=== PATIENT | male | born 1960 | race Caucasian/White ===

== ENCOUNTER → 2017-09-20 15:26 | Outpatient (CLI) | payer OTHER, SELFPAY ==
--- NOTE | 2017-09-20 15:30 | CT_ITS ---
CT sinus wo con CLINICAL INDICATION: Recent trauma with epistaxis ITS.REASON: EPISTAXIS ORDERING PHYSICIAN: Robin Jackson MD PATIENT AGE: 56 years COMPARISON: None TECHNIQUE:Axial, sagittal, and coronal images are generated and reviewed without contrast. All CT scans at the facility use one or more dose reduction, viz: automated exposure control; ma/kV adjustment per patient size (including targeted exams where dose is matched to indication; i.e. head); or iterative reconstruction technique. FINDINGS:No acute fracture is evident. Mild mucosal thickening involves the frontal sinuses with moderate to severe mucosal thickening of the ethmoid sinuses and bilateral maxillary mucosal thickening having a somewhat lobular contour consistent with bilateral retention cysts or polyps measuring up to 18 mm in thickness in the maxillary sinus floor on both sides. No sinus air-fluid level. Mild mucosal thickening involving sphenoid sinus. The ostiomeatal complexes are occluded bilaterally. There is minimal rightward nasal septal deviation. The orbits have an unremarkable appearance. Scattered small nodes are present in the neck There are encephalomalacic changes in the left frontal lobe and postsurgical changes in the left frontoparietal calvarium. Small metallic density present posterior to the left mandibular ramus. IMPRESSION: 1. Chronic Pansinusitis. Bilateral maxillary retention cysts and/or polyps. 2. No acute fracture or other significant anomalies
== END ==
PROVIDERS: Family Provider Family Medicine; PCP Family Medicine; Visit Provider Family Medicine
DX: R04.0 Epistaxis (principal)
CPT/HCPCS: 70486

== ENCOUNTER → 2017-10-23 10:58 | Outpatient (POV) | payer OTHER, SELFPAY | PROVIDERS: Visit Provider Otolaryngology | DX: Z00.00 Encounter for general adult medical examination without abnormal findings (principal) ==

== ENCOUNTER → 2018-02-05 15:07 | Outpatient (CLI) | payer OTHER, SELFPAY ==
--- NOTE | 2018-02-05 15:09 | MR_ITS ---
MR head/brain wo/w con HISTORY: Severe deep headache constant headache ITS.REASON: headache ORDERING PHYSICIAN: Brandi Davenport MD PATIENT AGE: 57 years Comparison: 07/17/2016 TECHNIQUE: Standard multiplanar multiecho sequences are performed without and with gadolinium enhancement. FINDINGS: No midline shift, mass effect, intracranial hemorrhage, hydrocephalus, or acute infarction is evident. No enhancing lesions. No intra or extra-axial mass. There are encephalomalacia changes in the left parietal lobe at the vertex and in the left frontal lobe inferiorly. The pituitary and optic chiasm are unremarkable. Craniocervical junction has an unremarkable appearance. The cerebellopontine angles, cerebellum, and brainstem are unremarkable. Minimal enhancement in the cortical region of the left parietal lobe not significant changed There is opacification of the ethmoid sinuses with moderate obvious mucosal thickening of the maxillary sinuses. There is an old left frontal parietal skull fracture versus prior craniotomy. Please correlate with patient's surgical history. IMPRESSION: 1. No acute intracranial findings with no significant change. 2. Encephalomalacic change in the left parietal lobe and left frontal lobe is not significantly changed. 3. Sinusitis
[2018-02-05 16:01] LABS: Blood Urea Nitrogen 11 mg/dL (7-18); Creatinine,Serum 1.27 mg/dL (0.70-1.30); Estimated Glomerular Filt Rate 58 ml/min (>60); GFR (African American) 71 ML/MIN (>60)
== END ==
PROVIDERS: PCP Family Medicine; Visit Provider Specialist
DX: R51 Headache (principal); S06.9X9S Unspecified intracranial injury with loss of consciousness of unspecified duration, sequela; W19.XXXS Unspecified fall, sequela
CPT/HCPCS: 36415; 70553; 82565; 84520; A9576

== ENCOUNTER → 2018-02-08 16:23 | Outpatient (CLI) | payer OTHER, SELFPAY | PROVIDERS: PCP Family Medicine; Visit Provider Specialist | DX: R51 Headache (principal) ==

== ENCOUNTER → 2018-02-25 15:02 | Outpatient (POV) | payer OTHER, SELFPAY ==
[2018-02-25 15:38] VITALS: BP 129/80; PULSE 103; RESP 18; O2SAT 98
--- NOTE | 2018-02-25 15:57 | [facility].PMCON ---
Assessment and Plan (1) Migraine Current visit: Yes Status: Chronic Category: Medical Code(s): G43.909 - Migraine, unspecified, not intractable, without status migrainosus - Assessment and plan all Dx Assessment and Plan for all problems:: We will try to get a neurostimulator approved. I believe that this may give him some relief. Patient has realistic goals in regards to this. Patient has tried and failed multiple other therapies. This note was dictated using voice recognition software and may contain errors or omissions HPI - Data of Consult Consult date: 02/25/18 Requesting Physician: India Woodard APRN Primary Care Provider: Robin Jackson MD - Consult Narrative Reason for consult: Headache History of present illness: Mr. Eng is a 57 year old male who presents today for consultation in regards to his headaches. Patient had a injury in 2014 where he sustained a subdermal hematoma. Patient has been in rehab for several years. Patient does not have much of pain sensation however he does have a chronic headache. Patient has tried dry needling along with injections along with nasal treatment patient has had no relief. Patient states that sunlight and loud noises increases pain while rest decreases his pain. Medication has not been very helpful for him. Patient has been seen by a neurologist and has not been able to get any relief. Patient's tried physical therapy and massage along with anti-inflammatories and benzodiazepines. Patient has had surgery in the past. Patient rates his pain today a 6 out of 10. He rates that it is constant. CC: India Woodard APRN [facility] History I have reviewed the patient's past medical history: Yes Medical History: Reports:: Hyperlipidemia, Hypertension, Migraine Denies:: Diabetes Mellitus Type 1 Other Surgeries: Yes: Other - *Social History Smoking Status: Never smoker Alcohol Intake: never Alcohol Intake Frequency:: other Substance Use Type: denies use Occupational Status: disabled Housing: house Household Members: family - Psychiatric History Expresses thoughts of harming self/others: None Suicide Plan Description: No Plan *Family Hx:: No significant family history Review of Systems - Review of Systems ROS General: no recent weight change, no fever, no sleep disturbances Respiratory: no cough, no shortness of air, no recurring pulmonary infections Cardiovascular/Peripheral Vascular: No chest pain, No palpitations, no edema, no shortness of breath. Gastrointestinal: no incontinence, normal bowel movements reported Genitourinary: no incontinence Musculoskeletal: No myofascial pain Psychiatric: normal mood/ affect, [denies depression], [denies anxiety] Neurological: [denies weakness in extremities], chronic headache Meds Home Medications Medication Instructions Recorded Confirmed Type clonazepam 0.5 mg tablet PO 30 Days #90 05/16/17 02/18/18 History zolpidem ER 12.5 mg PO 30 Days #30 05/16/17 02/18/18 History tablet,extended release,multiphase donepezil 10 mg tablet 10 mg PO DAILY 90 Days #90 tab 02/18/18 02/18/18 History Allergies Allergy/AdvReac Type Severity Reaction Status Date / Time No Known Allergies Allergy Unverified 02/18/18 16:27 Objective Vital signs: Pulse Resp BP Pulse Ox 103 H 18 129/80 98 02/25/18 15:38 02/25/18 15:38 02/25/18 15:38 02/25/18 15:38 Narrative: Physical Exam General: Alert and oriented x3, no acute distress, pleasant and cooperative, [on room air] Lungs: Resps E/U, Symmetrical chest expansion, Eyes: PERRL Musculoskeletal: deep tendon reflexes normal, strength in upper and lower extremities [5/5], slightly antalgic gait noted Neurological: speech clear, sisal picker equal, no gross sensory deficits Opioid Risk Tool - Opioid Risk Tool-Male Family hx alcohol abuse: N Family hx illegal drugs: N Family hx rx drug abuse: N Personal hx al
--- NOTE | 2018-02-25 16:00 | P.CONS_ITS ---
Assessment and Plan (1) Migraine Current visit: Yes Status: Chronic Category: Medical Code(s): G43.909 - Migraine, unspecified, not intractable, without status migrainosus - Assessment and plan all Dx Assessment and Plan for all problems:: We will try to get a neurostimulator approved. I believe that this may give him some relief. Patient has realistic goals in regards to this. Patient has tried and failed multiple other therapies. This note was dictated using voice recognition software and may contain errors or omissions HPI - Data of Consult Consult date: 02/25/18 Requesting Physician: India Woodard APRN Primary Care Provider: Robin Jackson MD - Consult Narrative Reason for consult: Headache History of present illness: Mr. Eng is a 57 year old male who presents today for consultation in regards to his headaches. Patient had a injury in 2014 where he sustained a subdermal hematoma. Patient has been in rehab for several years. Patient does not have much of pain sensation however he does have a chronic headache. Patient has tried dry needling along with injections along with nasal treatment patient has had no relief. Patient states that sunlight and loud noises increases pain while rest decreases his pain. Medication has not been very helpful for him. Patient has been seen by a neurologist and has not been able to get any relief. Patient's tried physical therapy and massage along with anti-inflammatories and benzodiazepines. Patient has had surgery in the past. Patient rates his pain today a 6 out of 10. He rates that it is constant. CC: India Woodard APRN [facility] History I have reviewed the patient's past medical history: Yes Medical History: Reports:: Hyperlipidemia, Hypertension, Migraine Denies:: Diabetes Mellitus Type 1 Other Surgeries: Yes: Other - *Social History Smoking Status: Never smoker Alcohol Intake: never Alcohol Intake Frequency:: other Substance Use Type: denies use Occupational Status: disabled Housing: house Household Members: family - Psychiatric History Expresses thoughts of harming self/others: None Suicide Plan Description: No Plan *Family Hx:: No significant family history Review of Systems - Review of Systems ROS General: no recent weight change, no fever, no sleep disturbances Respiratory: no cough, no shortness of air, no recurring pulmonary infections Cardiovascular/Peripheral Vascular: No chest pain, No palpitations, no edema, no shortness of breath. Gastrointestinal: no incontinence, normal bowel movements reported Genitourinary: no incontinence Musculoskeletal: No myofascial pain Psychiatric: normal mood/ affect, [denies depression], [denies anxiety] Neurological: [denies weakness in extremities], chronic headache Meds Home Medications Medication Instructions Recorded Confirmed Type clonazepam 0.5 mg tablet PO 30 Days #90 05/16/17 02/18/18 History zolpidem ER 12.5 mg PO 30 Days #30 05/16/17 02/18/18 History tablet,extended release,multiphase donepezil 10 mg tablet 10 mg PO DAILY 90 Days #90 tab 02/18/18 02/18/18 History Allergies Allergy/AdvReac Type Severity Reaction Status Date / Time No Known Allergies Allergy Unverified 02/18/18 16:27 Objective Vital signs: Pulse Resp BP Pulse Ox
== END ==
PROVIDERS: PCP Family Medicine; Visit Provider Clinical Nurse Specialist Family Health
DX: G43.909 Migraine, unspecified, not intractable, without status migrainosus (principal)
CPT/HCPCS: 99202

== ENCOUNTER → 2018-02-26 10:57 | Outpatient (POV) | payer OTHER, SELFPAY | PROVIDERS: Visit Provider Dermatology | DX: Z00.00 Encounter for general adult medical examination without abnormal findings (principal) ==

== ENCOUNTER → 2018-06-18 15:03 | Outpatient (POV) | payer OTHER, SELFPAY | PROVIDERS: Visit Provider Dermatology | DX: Z00.00 Encounter for general adult medical examination without abnormal findings (principal) ==

== ENCOUNTER → 2018-12-03 14:31 | Outpatient (POV) | payer OTHER, SELFPAY | PROVIDERS: Visit Provider Dermatology | DX: Z00.00 Encounter for general adult medical examination without abnormal findings (principal) ==

== ENCOUNTER → 2019-08-12 14:01 | Outpatient (POV) | payer OTHER, SELFPAY | PROVIDERS: PCP Family Medicine; Visit Provider Physician Assistant | DX: Z00.00 Encounter for general adult medical examination without abnormal findings (principal) ==

== ENCOUNTER → 2019-10-27 13:47 | Outpatient (CLI) | payer OTHER, SELFPAY ==
[2019-10-27 15:40] LABS: Alanine Aminotransferase 71 U/L (12-78); Albumin Level 5.4 g/dl (3.5-5.0); Alkaline Phosphatase 161 U/L (38-126); Aspartate Amino Transferase 54 U/L (17-59); Bilirubin,Direct 0.2 mg/dl (0.0-0.4); Bilirubin,Indirect 0.4 mg/dL (0.0-0.9); Bilirubin,Total 0.6 mg/dl (0.2-1.3); Bilirubin,Unconjugated 0.4 mg/dL (0.0-1.1); Chol/HDL Ratio 2.4 (1-3.5); Cholesterol 249 mg/dl (140-200); HDL Cholesterol 105 mg/dl (40-60); Total Protein,Serum 8.8 g/dl (6.3-8.2); Triglycerides 177 mg/dl (30-150); VLDL Cholesterol 35 mg/dL (0-40)
[2019-10-27 15:51] LABS: Direct LDL Cholesterol 105.22 mg/dL (100-129)
== END ==
PROVIDERS: Visit Provider Family Medicine
DX: E78.5 Hyperlipidemia, unspecified (principal)
CPT/HCPCS: 36415; 80061; 80076

== ENCOUNTER → 2020-12-03 14:55 | Outpatient (CLI) | payer OTHER, SELFPAY ==
[2020-12-03 15:26] LABS: Basophils # 0.1 K/mm3 (0-0.2); Basophils % 1.3 % (0.1-2.0); Eosinophils # 0.3 K/mm3 (0.0-0.4); Eosinophils % 3.2 % (0.1-12.0); Hematocrit 48.5 % (42.0-52.0); Hemoglobin 16.2 g/dL (14.1-18.0); Lymphocytes # 2.8 K/mm3 (0.7-4.5); Lymphocytes % 26.9 % (10-50); Mean Corpuscular HGB Conc 33.4 g/dL (31.8-35.4); Mean Corpuscular Hemoglobin 31.9 pg (27.0-31.2); Mean Corpuscular Volume 95.4 fl (80-94); Mean Platelet Volume 7.6 fl (7.4-10.4); Monocytes # 0.6 K/mm3 (0.1-1.0); Monocytes % 5.8 % (1.7-9.3); Neutrophils # 6.5 K/mm3 (1.8-7.8); Neutrophils % 62.8 % (37.0-80.0); Platelet Count 346 K/mm3 (142-424); Red Blood Count 5.09 M/mm3 (4.60-6.20); Red Cell Distribution Width 13.3 % (11.5-17.5); White Blood Count 10.4 K/mm3 (4.8-10.8)
[2020-12-03 17:09] LABS: Alanine Aminotransferase 137 U/L (12-78); Albumin Level 5.1 g/dl (3.5-5.0); Albumin/Globulin Ratio 1.6 (1.1-1.8); Alkaline Phosphatase 145 U/L (38-126); Anion Gap 19.7 mEq/L (5-15); Aspartate Amino Transferase 86 U/L (17-59); Bilirubin,Total 0.8 mg/dl (0.2-1.3); Blood Urea Nitrogen 19 mg/dl (9-20); Calcium 10.4 mg/dl (8.4-10.2); Carbon Dioxide 25 mmol/L (22.0-30.0); Chloride 102 mmol/L (98-107); Cholesterol 245 mg/dl (140-200); Estimated Glomerular Filt Rate 52 ml/min (>60); GFR (African American) 63 ML/MIN (>60); Globulin 3.2 g/dL (1.3-3.2); Glucose 159 mg/dl (74-100); HDL Cholesterol 82 mg/dl (40-60); Potassium 4.7 mmoL/L (3.5-5.1); Sodium 142 mmol/L (136-145); Total Protein,Serum 8.3 g/dl (6.3-8.2); Triglycerides 199 mg/dl (30-150); VLDL Cholesterol 40 mg/dL (0-40)
[2020-12-03 17:20] LABS: Direct LDL Cholesterol 129.11 mg/dL (100-129)
[2020-12-03 17:40] LABS: Thyroid Stimulating Hormone 1.35 uIU/mL (0.465-4.68)
== END ==
PROVIDERS: Visit Provider Family Medicine
DX: R53.83 Other fatigue (principal); E78.5 Hyperlipidemia, unspecified; F41.9 Anxiety disorder, unspecified; G40.909 Epilepsy, unspecified, not intractable, without status epilepticus; Z12.5 Encounter for screening for malignant neoplasm of prostate
CPT/HCPCS: 36415; 80053; 80061; 84443; 85025; G0103

== ENCOUNTER → 2021-04-12 09:56 | Outpatient (CLI) | payer OTHER, SELFPAY | PROVIDERS: PCP Family Medicine; Visit Provider Nurse Practitioner | DX: Z20.822 Contact with and (suspected) exposure to COVID-19 (principal) | CPT/HCPCS: C9803; U0003; U0005 ==

== ENCOUNTER → 2021-12-08 13:27 | Outpatient (CLI) | payer OTHER, SELFPAY ==
[2021-12-08 16:44] LABS: Hemoglobin A1C 6.5 % (4.0-6.0)
[2021-12-08 16:59] LABS: Alanine Aminotransferase 53 U/L (12-78); Albumin/Globulin Ratio 1.5 (1.1-1.8); Alkaline Phosphatase 156 U/L (38-126); Anion Gap 17.8 mEq/L (5-15); Aspartate Amino Transferase 44 U/L (17-59); Bilirubin,Total 0.6 mg/dl (0.2-1.3); Blood Urea Nitrogen 21 mg/dl (9-20); Calcium 10.7 mg/dl (8.4-10.2); Carbon Dioxide 23 mmol/L (22.0-30.0); Chloride 105 mmol/L (98-107); Chol/HDL Ratio 3.2 (1-3.5); Cholesterol 266 mg/dl (140-200); Estimated Glomerular Filt Rate 56 ml/min (>60); GFR (African American) 68 ML/MIN (>60); Globulin 3.4 g/dL (1.3-3.2); Glucose 168 mg/dl (74-100); HDL Cholesterol 84 mg/dl (40-60); Potassium 4.8 mmoL/L (3.5-5.1); Sodium 141 mmol/L (136-145); Total Protein,Serum 8.4 g/dl (6.3-8.2); Triglycerides 249 mg/dl (30-150); VLDL Cholesterol 50 mg/dL (0-40)
[2021-12-10 08:00] LABS: Direct LDL Cholesterol 121 mg/dL (100-129)
== END ==
PROVIDERS: PCP Family Medicine; Visit Provider Family Medicine
DX: E78.5 Hyperlipidemia, unspecified (principal); R74.8 Abnormal levels of other serum enzymes; R73.9 Hyperglycemia, unspecified
CPT/HCPCS: 36415; 80053; 80061; 83036

== ENCOUNTER → 2022-06-20 13:26 | Outpatient (POV) | payer OTHER, SELFPAY | PROVIDERS: Visit Provider Dermatology | DX: Z00.00 Encounter for general adult medical examination without abnormal findings (principal) ==

== ENCOUNTER → 2022-11-22 13:47 | Outpatient (CLI) | payer OTHER, SELFPAY ==
[2022-11-22 15:06] LABS: Alanine Aminotransferase 91 U/L (12-78); Albumin Level 4.9 g/dl (3.5-5.0); Albumin/Globulin Ratio 1.5 (1.1-1.8); Alkaline Phosphatase 154 U/L (38-126); Anion Gap 16.6 mEq/L (5-15); Aspartate Amino Transferase 79 U/L (17-59); Bilirubin,Total 0.6 mg/dl (0.2-1.3); Blood Urea Nitrogen 15 mg/dl (9-20); Calcium 10.1 mg/dl (8.4-10.2); Carbon Dioxide 25 mmol/L (22.0-30.0); Chloride 105 mmol/L (98-107); Cholesterol 279 mg/dl (140-200); Estimated Glomerular Filt Rate 61 ml/min (>60); GFR (African American) 74 ML/MIN (>60); Globulin 3.2 g/dL (1.3-3.2); Glucose 213 mg/dl (74-100); HDL Cholesterol 69 mg/dl (40-60); Potassium 4.6 mmoL/L (3.5-5.1); Sodium 142 mmol/L (136-145); Total Protein,Serum 8.1 g/dl (6.3-8.2); Triglycerides 222 mg/dl (30-150); VLDL Cholesterol 44 mg/dL (0-40)
[2022-11-22 15:18] LABS: Direct LDL Cholesterol 149.74 mg/dL (100-129)
[2022-11-22 15:37] LABS: Prostate Specific Ag Screen 0.9 ng/ml (0.0-4.0)
== END ==
PROVIDERS: PCP Family Medicine; Visit Provider Family Medicine
DX: E78.5 Hyperlipidemia, unspecified (principal); R73.03 Prediabetes; Z12.5 Encounter for screening for malignant neoplasm of prostate
CPT/HCPCS: 36415; 80053; 80061; 83036; G0103

== ENCOUNTER 2024-08-19 14:23 | Outpatient (CLI) | payer OTHER, SELFPAY ==
[2024-08-19 15:15] LABS: Alanine Aminotransferase 24 U/L (12-78); Albumin Level 4.8 g/dl (3.5-5.0); Albumin/Globulin Ratio 1.8 (1.1-1.8); Alkaline Phosphatase 107 U/L (38-126); Anion Gap 8.1 mEq/L (5-15); Aspartate Amino Transferase 22 U/L (17-59); Bilirubin,Total 0.6 mg/dl (0.2-1.3); Blood Urea Nitrogen 16 mg/dl (9-20); Calcium 9.9 mg/dl (8.4-10.2); Carbon Dioxide 28 mmol/L (22.0-30.0); Chloride 108 mmol/L (98-107); Chol/HDL Ratio 2.1 (1-3.5); Cholesterol 185 mg/dl (140-200); Estimated Glomerular Filt Rate 56 ml/min (>60); GFR (African American) 67 ML/MIN (>60); Globulin 2.6 g/dL (1.3-3.2); Glucose 134 mg/dl (74-100); HDL Cholesterol 88 mg/dl (40-60); Potassium 4.1 mmoL/L (3.5-5.1); Sodium 140 mmol/L (136-145); Total Protein,Serum 7.4 g/dl (6.3-8.2); Triglycerides 113 mg/dl (30-150); VLDL Cholesterol 23 mg/dL (0-40)
[2024-08-19 15:26] LABS: Direct LDL Cholesterol 76.76 mg/dL (100-129)
[2024-08-19 15:46] LABS: Prostate Specific Ag Screen 1.2 ng/ml (0.0-4.0)
== END 2024-08-19 23:59 | disposition home or self-care (01) ==
LOC: LAB 14:24
PROVIDERS: PCP Family Medicine; Visit Provider Family Medicine
DX: Z12.5 Encounter for screening for malignant neoplasm of prostate (principal); E78.5 Hyperlipidemia, unspecified; E11.9 Type 2 diabetes mellitus without complications
CPT/HCPCS: 36415; 80053; 80061; 83036; G0103